=== PATIENT | male | born 1955 | race Caucasian/White ===

== ENCOUNTER 2016-03-31 13:40 | Emergency (ER) | payer OTHER ==
--- NOTE | 2016-03-31 14:12 | ERNOTE ---
Abdominal HPI - Narrative Date of Service: 03/31/16 - General Chief Complaint: Abdominal Pain Time Seen by Provider: 03/31/16 13:57 Source: patient, family Exam Limitations: no limitations - Immun/Allergies/Home Medications Allergies/Adverse Reactions: Allergies acetaminophen [From Percocet] Adverse Reaction (Verified 03/31/16 13:56) Nausea oxycodone HCl [From Percocet] Adverse Reaction (Verified 03/31/16 13:56) Nausea Home Medications: HOME MEDICATIONS Acetaminophen [Tylenol Extra Strength] 500 mg PO QID 01/28/12 [Last Taken ] Calcium Carbonate [Tums] 200 mg PO PRN PRN 01/28/12 [Last Taken 06/30/14] Diltiazem HCl [Cardizem Cd] 300 mg PO DAILY 01/28/12 [Last Taken 07/01/14] Lisinopril 20 mg PO DAILY 01/28/12 [Last Taken 07/01/14] Omeprazole 20 mg PO DAILY 01/28/12 [Last Taken 07/01/14] Sennosides [Perdiem] 3 tab PO DAILY 01/28/12 [Last Taken 06/30/14] Multivit-Min/FA/Lycopene/Lut [Centrum Silver Ultra Men's Tab] 1 each PO DAILY [Last Taken 06/30/14] Cholecalciferol (Vitamin D3) [Vitamin D3] 1,000 unit PO DAILY 06/18/14 [Last Taken 06/30/14] Propranolol HCl [Inderal LA] 120 mg PO QID 11/12/14 [Last Taken 11/29/14 07:00] Finasteride [Proscar] 5 mg PO DAILY 03/31/16 [Last Taken Unknown] Phentermine HCl [Adipex-P] 37.5 mg PO DAILY 03/31/16 [Last Taken Unknown] Tamsulosin HCl [Flomax] 0.4 mg PO DAILY 03/31/16 [Last Taken Unknown] Ubidecarenone [Co Q-10] 400 mg PO DAILY 03/31/16 [Last Taken Unknown] - History of Present Illness Narrative: Patient comes due to Abdominal Pain. The pain is more in the upper abdominal area. Patient has been with constipation and has noticed and increase on weight. Patient has noticed that his abdomen is getting distended. Patient tried to get seen by his PCP, but PCP send him to the ER to exclude and infection on his abdomen. Timing: constant Quality: moderate Activities at Onset: none Modifying Factors - (Improves): Present: other - nothing Modifying Factors - (Worsens): Present: movement Associated Symptoms: Present: nausea. Absent: headache, chest pain, diaphoresis , diarrhea-gross blood, diarrhea-mucous, fever/chills, heartburn, vomiting, loss of appetite, shortness of breath, swelling/mass in abdomen, syncope, weakness Prior Abdominal Problems: Present: similar symptoms. Absent: recent trauma Prior Treatment: Absent: recently seen Review of Systems - Review of Systems Constitutional: Absent: fever, chills, weakness EYE: Present: no symptoms reported ENT: Present: no symptoms reported Respiratory: Present: no symptoms reported Cardiology: Absent: chest pain, palpitations, syncope, edema Gastrointestinal/Abdominal: Present: nausea, constipation, abdominal pain - upper abdomen only Genitourinary: Present: no symptoms reported Musculoskeletal: Present: no symptoms reported Skin: Present: no symptoms reported Neurological: Present: no symptoms reported Endocrine: Present: no symptoms reported Hematologic/Lymphatic: Present: no symptoms reported Psych: Present: no symptoms reported - Patient's Past Medical History Patient History - Medical: GERD Patient History - Cancer: Skin Patient History - Surgical Procedures: Appendectomy, Colonoscopy, T & A - Social History Living Situations: spouse Smoking Status: Never smoker Have you smoked in the past 12 months: No Alcohol Use: none Drug Use: none Physical Exam - Physical Exam General Appearance: Present: wd/wn, alert, no apparent distress Eye Exam: Normal inspection: bilateral, PERRL: bilateral, EOMI: bilateral Ears, Nose, Throat: Present: normal ENT inspection, hearing grossly normal, normal pharynx Neck: Present: normal inspection, nontender Respiratory: Present: no respiratory distress, normal breath sounds, no accessory muscle use, chest nontender, lungs clear Cardiovascular/Chest: Present: regular rate, rhythm, no murmur, normal peripheral pulses Gastrointestinal/Abdominal: Present: tenderness - upper abdomen area, distended , guarding. Absent: rebound, Obturator sign, House sign, mass, hernia Back Exam: Present: no CVA tenderness Extremity Exam: Present: normal inspection, non-tender, no edema, normal range of motion Neurological Exam: Present: alert, oriented, normal mood/affect, no motor/ sensory deficits Skin Exam: Present: normal color, warm/dry Lymphatic Exam: Present: no adenopathy ED Progress - Date and Time Seen: Date and Time: 03/31/16 16:00 Patient at the moment with a non surgical abdomen. Patient CT was reported by radiologist with no acute pathology. Patient has been recommended to follow up with PCP an GI. I had informed patient of pulmonary changes and the importance to follow. It was informed by and patient that this findings were known to them and they will follow up with PCP. - Results and Orders Patient's Lab Results:: I have reviewed the patient's lab results. Results and Orders: Patient with no elevated WBC. Patient with evidence of chronic renal insufficiency. - Vital Signs Patient's Vital Signs:: I have reviewed the patient's vital signs. Vital Signs: Vital Signs 03/31/16 13:48 Temperature 36.0 C L Pulse Rate 57 L Respiratory 15 Rate Blood Pressure 135/78 O2 Sat by Pulse 95 Oximetry - CT/Ultrasound CT/Ultrasound Narrative: No Diverticulitis, Hiatal Hernia, Pulmonary Nodolue. Radiology report was noticed. - Progress/Reassessment Chief Complaint: Abdominal Pain Progress:: Re-examined Plan - Plan Plan: Follow up with your Primary Care Provider and/or GI Specialist Departure - Departure Clinical Impression: Abdominal pain Qualifiers: Abdominal location: generalized Qualified Code(s): R10.84 - Generalized abdominal pain Constipation Qualifiers: Constipation type: unspecified constipation type Qualified Code(s): K59.00 - Constipation, unspecified Disposition: Home self-care Instructions: Abdominal Pain, Adult, [id number] Referrals: Dominique Collins MD [Primary Care Provider] -
[2016-03-31 14:23] LABS: Urine Bilirubin Negative (NEGATIVE); Urine Blood Negative /ul (NEGATIVE); Urine Ketone Negative (NEGATIVE); Urine Nitrite Negative (NEGATIVE); Urine Protein Negative (NEGATIVE); Urine Specific Gravity 1.025 SP.GR. (1.005-1.030); Urine Urobilinogen Normal (NORMAL)
[2016-03-31 14:26] LABS: Hematocrit 44.3 % (42.0-52.0); Hemoglobin 14.8 gm/dL (13.5-18.0); Mean Cell Volume 88.1 fl (78-100); Mean Corpuscular Hemoglobin 29.4 pg (27-31); Mean Corpuscular Hgb Conc 33.4 g/dl (32-36); Neutrophil # 4.4 K/mm3 (1.3-6.0); Neutrophil % 64.7 % (42-75.0); Platelet Count 221 K/mm3 (150-450); Red Blood Count 5.03 M/mm3 (4.7-6.0); Red Cell Distribution Width 12.4 % (11.5-14.0); White Blood Count 6.8 K/mm3 (4.0-10.5)
[2016-03-31 14:35] LABS: Urine Appearance Clear; Urine Bacteria None Seen; Urine Color Dark Yellow; Urine RBC None Seen /hpf (0-5); Urine WBC None Seen /hpf (0-5)
[2016-03-31 14:39] LABS: Albumin * 4.1 gm/dl (3.4-5.0); Anion Gap 14.1 mmol/L (6.8-13.8); BUN/Creatinine Ratio 12.4 (9.0-21.6); Bilirubin, Total 0.8 mg/dL (0.0-1.1); Ca. Corrected For Albumin 8.8 mg/dL (8.4-10.2); Calcium * 9.2 mg/dL (7.9-10.9); Potassium 4.1 mmol/L (3.4-4.6); Total Protein 7.7 gm/dL (6.2-8.2)
[2016-03-31 15:17] VITALS: BP 139/87
== END 2016-03-31 16:07 | disposition home or self-care (01) ==
LOC: ER 13:40
DX: K59.00 Constipation, unspecified (principal); R10.84 Generalized abdominal pain; Z85.828 Personal history of other malignant neoplasm of skin; K21.9 Gastro-esophageal reflux disease without esophagitis

== ENCOUNTER 2019-01-29 06:19 | Inpatient (IN) ==
--- NOTE | 2019-01-24 07:31 | ANES ---
Anesthesia Pre Procedure Eval HOME MEDICATIONS Multivit-Min/FA/Lycopen/Lutein [Centrum Silver Ultra Men's Tab] 1 ea PO DAILY 04/27/12 [Last Taken 06/30/14] finasteride 5 mg tablet 5 mg PO DAILY #30 tab 09/15/17 [Last Taken Unknown] tamsulosin 0.4 mg capsule 0.4 mg PO DAILY #30 cap 09/16/17 [Last Taken Unknown] calcium carbonate 200 mg calcium (500 mg) chewable tablet 200 mg PO BID tab 02/13/18 [Last Taken Unknown] cholecalciferol (vitamin D3) 1,000 unit capsule 1,000 unit PO DAILY cap 02/13/18 [Last Taken Unknown] sennosides 15 mg tablet 15 mg PO TID tab 02/13/18 [Last Taken Unknown] fluticasone propionate 50 mcg/actuation nasal spray,suspension 2 spray FRANDY DAILY #16 g 05/19/18 [Last Taken Unknown] lisinopril 20 mg tablet See Rx Instructions .ROUTE .COMPLEX #30 tablet 11/16/18 [Last Taken Unknown] omeprazole 20 mg capsule,delayed release See Rx Instructions .ROUTE .COMPLEX #30 capsule 11/16/18 [Last Taken Unknown] propranolol 120 mg capsule,24 hr,extended release See Rx Instructions .ROUTE .COMPLEX #120 capsule 11/16/18 [Last Taken Unknown] cannabidiol (CBD) extract 100 mg/mL oral solution 500 mg PO .COMPLEX ml 01/04/19 [Last Taken Unknown] naproxen 500 mg tablet 500 mg PO BID PRN #60 tab 01/08/19 [Last Taken Unknown] tramadol 50 mg tablet See Rx Instructions PO Q8H PRN #60 tab 01/18/19 [Last Taken Unknown] diltiazem HCl 300 mg capsule,extended release 24 hr See Rx Instructions .ROUTE .COMPLEX #30 capsule 01/22/19 [Last Taken Unknown] levothyroxine 50 mcg tablet See Rx Instructions .ROUTE .COMPLEX #30 tablet 01/22/19 [Last Taken Unknown] Allergies/Adverse Reactions: Allergies Allergy/AdvReac Type Severity Reaction Status Date / Time oxycodone HCl [From Percocet] AdvReac Mild N/V Verified 01/23/19 09:36 - Planned Procedure Planned Procedure: L Arthroplasty Total Knee Medication List Reviewed:: Yes Allergies Verified: Yes Medical History (Last Reviewed 01/24/19 @ 07:29 by Sancho Leong CRNA) Abnormal chest CT Onset Date: 11/04/16 DJD (degenerative joint disease) of knee Onset Date: Unknown Finger pain Onset Date: Unknown left- ring right- long GERD (gastroesophageal reflux disease) Onset Date: Unknown Hyperlipidemia Onset Date: Unknown Hypertension Onset Date: Unknown Knee pain, left Onset Date: Unknown Personal history of colonic polyps Onset Date: 12/15/10 Bagan- benign hyperplastic polyp @ 100 cm. Seasonal allergies Onset Date: Unknown Shoulder pain Onset Date: 11/14/14 left- 04/20/2012 right- 11/14/2014 Skin lesion Onset Date: 10/31/13 right upper arm/melanoma Surgical History (Last Reviewed 01/24/19 @ 07:29 by Sancho Loeng CRNA) History of appendectomy Onset Date: Unknown age 6 History of arthroscopic knee surgery Onset Date: 07/01/14 left knee arthroscopy-dr. whitt History of arthroscopic surgery of shoulder Onset Date: 11/29/14 left- franklin--rtc repair- 04/28/12 right- - 11/29/14 History of carpal tunnel release Onset Date: Unknown bilateral History of colonoscopy Onset Date: 12/15/10 Bagan- benign hyperplastic polyp @ 100 cm. History of thumb surgery Onset Date: 2007 bilateral first joint removal History of tonsillectomy and adenoidectomy Onset Date: Unknown age 6 Status post trigger finger release Onset Date: 04/22/17 Dr. Whitt: right long finger A1 srinath Status post trigger finger release Onset Date: ~03/17/18 Procedure: Left ring finger A1 srinath release Dr. Whitt Family History (Last Reviewed 01/24/19 @ 07:29 by Sancho Leong CRNA) Mother Cancer thyroid Father , age 79 Cancer lung Kidney failure Sister Hyperlipemia - Family Anesthesia History Family History:: no untoward family reactions to anesthesia, no familial bleeding tendencies, no family history of clotting disorders, no family history of premature - Airway/Neck/Teeth Within Normal Limits:: Yes Teeth Condition: intact Neck Exam: full range of motion Mallampatti Score: 3 Thyromental (T-M) distance: > 6 cm Mandibulo Hyoid distance: > 3 cm - Respiratory Respiratory History: other - seasonal allergies Respiratory Physical: lungs clear Smoking Status: Never smoker Sleep Apnea currently treated: No Sleep Apnea by current assessment: No - Cardiovascular Cardiac History: hypertension Tolerate Activity: Fair - much pain on ambulation Heart Sounds: S1 & S2, Regular - Anesthesia Assessment and Plan ASA Class: PS, II Anesthesia Type Plan: Block - adductor canal block for post op pain relief, Spinal
[~2019-01-29 06:19] MED LIST: MORPHINE SULFATE 15 MG TABLET.SA PO PRN; ROPIVACAINE HCL/PF 100 MG, EPINEPHrine 0.2 MG, KETOROLAC TROMETHAMINE 30 MG in NORMAL S... IJ PRN; TRANEXAMIC ACID 1,000 MG in NORMAL SALINE 100 ML IV PRN; ceFAZolin SODIUM 1 GM VIAL IV PRN
[2019-01-29] MEDS ORDERED: ISOPROPYL ALCOHOL 480 APPL BTL MC ONE (06:42)
[2019-01-29] MEDS ORDERED: ceFAZolin SODIUM 1 GM VIAL ONE (06:43)
[2019-01-29] MEDS ORDERED: LIDOCAINE HCL 20 ML VIAL ONE (06:56)
[2019-01-29] MEDS ORDERED: MIDAZOLAM HCL/PF 5 MG/ML VIAL ONE (06:57)
[2019-01-29] MEDS ORDERED: BUPIVACAINE HCL/EPINEPHRINE 50 ML VIAL ONE (06:57)
[2019-01-29] MEDS ORDERED: PROPOFOL VIAL IV ONE (06:57)
[2019-01-29] MEDS ORDERED: ONDANSETRON HCL/PF 2 MG/ML VIAL ONE (07:16)
[2019-01-29] MEDS: RINGER'S SOLUTION,LACTATED 1,000 ML IV PRN ×2 (07:18→08:30)
[2019-01-29] MEDS ORDERED: MAGNESIUM HYDROXIDE 30 ML UDC PO PRN (10:25)
[2019-01-29] MEDS ORDERED: ZOLPIDEM TARTRATE 5 MG TABLET PO PRN (10:25)
[2019-01-29] MEDS ORDERED: MAG HYDROX/ALUMINUM HYD/SIMETH 30 ML UDC PO PRN (10:25)
[2019-01-29] MEDS ORDERED: diphenhydrAMINE HCL 50 MG/ML VIAL IV PRN (10:25)
[2019-01-29] MEDS ORDERED: ONDANSETRON HCL/PF 2 MG/ML VIAL IV PRN (10:25)
[2019-01-29] MEDS ORDERED: CALCIUM CARBONATE 500 MG TAB.CHEW PO PRN ×2 (10:27→11:00)
[2019-01-29] MEDS ORDERED: DILTIAZEM HCL SCH (10:30)
--- NOTE | 2019-01-29 10:31 | OR ---
Operative Report - Dictated Report Narrative: Date: 01/29/2019 Preoperative diagnosis: Left knee degenerative joint disease. Postoperative diagnosis: Left knee degenerative joint disease. Procedure: Left total knee arthroplasty. Surgeon: Abiodun Whitt M.D. Newspaper Illustrator: Carl Licona PA-C (provided and essential set of skilled, educated hands that assisted with transfer, positioning, prepping, draping, manipulation, retraction, placement of jigs, injection, insertion of implants, irrigation, closure wounds, and dressings all of which could not be performed by the available surgical crew) Anesthesia: Spinal with regional block and local periarticular joint injection. Complications: None Specimens: Bone. Estimated blood loss: Minimal. Tourniquet time: 100 Minutes at 325 millimeters of mercury. Retained implants: Depuy Attune size 7 left lugged cemented posterior stabilized femoral component. Size 7 fixed-bearing cemented tibial platform. 7 by 5 millimeter posterior stabilized cross-linked tibial insert. 41 millimeter medialized patella button. Indications: Mr. Unger is a 63-year-old gentleman who has had long-standing left knee pain and arthrosis. This patient was followed in my clinic for period of time with significant complaints of left knee pain consistent with arthritic changes. He had failed conservative measures including, but not limited to, activity modification, passage of time, medications, and other conservative measures. Patient wished to proceed with surgical treatment. The risks, benefits, and alternatives were discussed in clinic. The risks of , blood clots, bleeding, infection, nerve/tendon blood vessel/ injury, malposition of components, intraoperative fracture, postoperative limited range of motion, persistent pain, failure of components, and need for additional procedures. Patient wished to proceed consent was obtained after answering all questions. Procedure: After marking the correct extremity on the floor, the patient was taken to the operating room. A timeout was performed. IV antibiotics consisting of Ancef were administered prior to the procedure. A regional followed by spinal anesthetic was induced by anesthesia, per my request, on the operative table with all bony prominences well-padded. Bender catheter was placed, and a bump was placed under the operative side buttock. SCDs and OZZY hose were utilized on the nonoperative leg. A well-padded tourniquet was applied to the operative thigh. The operative leg was then pre-scrubbed with alcohol, prepped, and draped in a standard sterile fashion. After exsanguinating the extremity with an Esmarch bandage, the tourniquet was inflated. After marking out the anterior knee for standard incision centered over the patella, the skin was incised and dissected down to the joint retinaculum. The joint retinaculum was marked out as well as the horizontal axis of the patella, and a standard medial parapatellar arthrotomy was then made. The most proximal aspect of the quadriceps tendon and the patella tendon insertion were protected from release. A partial synovectomy was performed as well as a resection of the infrapatellar fat pad. The distal femoral fat pad proximal to the trochlea was also resected using cautery. The soft tissues were elevated off the medial aspect of the proximal tibia using a Alejo elevator ensuring that we did not transect the medial collateral ligament. Upon initial evaluation range of motion was approximately 0 degrees to 115 degrees of flexion. There were signs of advanced arthrosis in the medial, and patellofemoral greater than lateral joint spaces. There were large marginal osteophytes which were removed with a rongeur. The knee was hyperflexed and the patella was tucked laterally. Protecting the surrounding soft tissues with Homans, an entry drill was placed down the femoral canal using Whitesides line for guidance into the entry point. The intramedullary femoral alignment luis was utilized in order to cut the distal femur in 5 degrees of valgus resecting 10 millimeters of bone. Next the distal femur was sized to a size 7. A posterior referencing guide was utilized to place the distal femoral cutting block in 3 degrees of external rotation. This was pinned into place. The rotation was confirmed both visually and based on anatomic landmarks. The 4 in 1 cutting jig of the appropriate size was utilized in order to make all bony cuts. The angle wing was used to ensure no notching. Retractors were utilized in order to protect surrounding soft tissues. This cut did not result in any excessive notching. We then cut the box centered over the distal femur. This allowed for resection of the anterior and posterior cruciate ligaments. I then turned my attention to the preparation of the tibia. Using an extra medullary tibial alignment luis, 3 millimeters of bone was resected off the medial articular surface. This was made perpendicular to the mechanical axis of the joint with the alignment luis centered over the ankle mortise. The alignment luis was checked and was noted to be parallel to the mechanical axis, centered over the medial one third of the tibial tubercle, paralleling the anterior surface of the tibia. We then turned our attention to the remaining meniscus and soft tissues. These were removed while protecting the surrounding ligaments and soft tissues. The marginal osteophytes off the anterior, posterior, medial, lateral aspects of the femur and tibia were removed. The tibia was sized out to a size 7. Next the tibia was drilled and punched in an externally rotated position. Next the trial femur and a series of tibial inserts were utilized in order to allow for full extension and maximal flexion. It was found that a 5 millimeter insert gave the best range of motion and stability at multiple flexion points as well as at full extension there was less than 2 mm of gapping both medially and laterally. There is minimal anterior translation with the knee at 90 degrees of flexion and no signs of being able to dislocate the knee. The patella was then prepared. The initial thickness was 25 millimeters. This was reamed down to 15 millimeters parallel to the anterior surface of the patella. It was sized out to a size 41 medialized patella button. This was then drilled and trialed. Without any medial restraint the patella tracked appropriately and did not sublux or dislocate. At this point, it was felt these were the appropriate sized implants, and all trials were removed. The standard periarticular joint injection consisting of ropivacaine, Toradol, and epinephrine were injected into the periarticular joint tissues. The bony surfaces were thoroughly irrigated with a pulsatile-suction saline irrigation device. A bone plug from the prior resected anterior chamfer cut was placed into the drill hole at the distal femur. The bony surfaces were then dried in preparation for placement of the implants. The cement was vacuum mixed per the railcar carpenter's instructions. The cement was placed on the dry bony surfaces and posterior aspect of the implants. The implants were impacted into place, removing all extruded cement. At this point anesthesia administered tranexamic acid per protocol intravenously. The knee was placed in extension with axial loading with the trial insert while the cement cured. Once the cement cured, all remaining extruded cement was removed. The knee was placed through a range of motion with the trial insert to ensure appropriate range of motion and stability. Final range of motion was approximately 0 to 120 degrees. The knee was again thoroughly irrigated with pulsatile saline lavage. The final polyethylene insert was then impacted into place ensuring no retained soft tissues. The remaining periarticular joint injection was injected. A medium Hemovac drain was placed exiting superior laterally. The knee was then placed over a triangle and the arthrotomy was closed with interrupted #1 Vicryl after thoroughly irrigating the joint. The deep and subcutaneous tissues were closed with interrupted 0 and 3-0 Vicryl respectively. Skin was closed with a running subcutaneous 3-0 Monocryl and Prineo Dermabond dressing. 4 x 4's, Sof-Rol, and a full leg Jung wrap were applied. All sponge, needle, blade, and instrument counts were correct prior to closing the wounds. Postoperative condition: The patient was awoken and transferred to the postanesthesia care unit in stable condition. Plan is to be admitted to the inpatient medical/surgical floor postoperatively for 24 hours of IV antibiotics, physical therapy, occupational therapy, and medical comanagement. Patient will be weightbearing as tolerated with range of motion as tolerated. DVT prophylaxis will be with SCDs, OZZY hose, and pharmacological anticoagulation. Anticipated hospital stay is approximately 1-3 days.
--- NOTE | 2019-01-29 10:32 | ANES ---
Post Anesthesia Discharge - Transfer of Care Transfer of Care handoff given to nurse: Yes - Discharge from PACU Discharge from PACU when meets criteria: Yes - Awake and comfortable
--- NOTE | 2019-01-29 10:32 | ANES ---
Anesthesia Procedure Note Procedure Note: ANESTHESIA PROCEDURE NOTE Date of Procedure: [01/29/2019 Time of procedure: 8:00 a.m. Performed by: DRE Marcum CRNA, MSN Supervisor Sintering Plant: Elisabeth Kasper RN. Preprocedure diagnosis: Elisabeth Kasper RN. Post procedure diagnosis: Same. Procedure: Left adductor Canal Block. Indications: Post left total knee arthroplasty pain relief. Findings: See below. Details of the procedure: The patient was brought to OR for and placed in supine position. The patient's left femoral area to the knee was prepped with chlorhexidine and using ultrasound guidance the left femoral artery and nerve was identified and then followed to the level of the adductor canal. Lidocaine 1% was infiltrated to the skin of the intended injection site. Under ultrasound guidance the saphenous nerve was approached with visualization of a 2 inch shielded block needle. Once saphenous nerve was identified with proximity to the needle tip, the saphenous nerve was surrounded with 20 mL bupivacaine 0.5% with 1-200,000 epinephrine. Please see radiology/ultrasound report for details and retained images of the procedure. EBL: 0 Fluids: N/A. Specimen: N/A. Post procedure condition: The patient tolerated the procedure well. No complications were noted. Thank you for this consultation. Sancho Leong CRNA, ARNP, MSN
[2019-01-29] MEDS: ceFAZolin SODIUM 1 GM in DEXTROSE 5 % IN WATER 100 ML IV SCH ×4 (11:39→17:31)
[2019-01-29] MEDS: DEXTROSE 5%-LACTATED RINGERS 1,000 ML IV PRN ×2 (11:39→20:44)
[2019-01-29] MEDS: KETOROLAC TROMETHAMINE 15 MG/ML VIAL IV SCH ×3 (11:40→22:12)
--- NOTE | 2019-01-29 11:54 | ANES ---
Post Anesthesia Assessment - Vital Signs Vitals: Last Vital Signs Temp 36.8 C 01/29/19 10:54 Pulse 56 L 01/29/19 10:54 Resp 14 01/29/19 10:54 BP 138/83 01/29/19 10:54 Pulse Ox 98 01/29/19 10:54 Airway Patency: Normal - Mental Status Level Of Consciousness: Awake, Alert, Appropriate - Pain Level Pain Score: 0 - N/V Assessment Nausea/Vomiting Presence: None Dehydration:: No
[2019-01-29] MEDS: MORPHINE SULFATE 10 MG/0.5 ML SYRINGE PO PRN ×2 (12:42→16:51)
[2019-01-29] MEDS: PANTOPRAZOLE SODIUM 20 MG TABLET.DR PO SCH (13:33)
[2019-01-29] MEDS: MORPHINE SULFATE 2 MG/ML DISP.SYRIN IV PRN (13:33)
[2019-01-29] MEDS: DILTIAZEM HCL PO SCH ×2 (13:33)
[2019-01-29] MEDS: PROPRANOLOL HCL 60 MG CAPSULE.SA PO SCH (13:33)
[2019-01-29] MEDS: FINASTERIDE 5 MG TABLET PO SCH (18:39)
[2019-01-29] MEDS: TAMSULOSIN HCL 0.4 MG CAP.SR.24H PO SCH (18:39)
[2019-01-29] MEDS: MORPHINE SULFATE 15 MG TABLET.SA PO SCH (20:44)
[2019-01-29] MEDS: SENNOSIDES 8.6 MG TABLET PO SCH (20:46)
[2019-01-29] MEDS: SENNOSIDES/DOCUSATE SODIUM 1 TAB TABLET PO SCH (20:47)
[2019-01-29] MEDS ORDERED: TAMSULOSIN HCL 0.4 MG CAP.SR.24H PO SCH (21:00)
[2019-01-30] MEDS: ceFAZolin SODIUM 1 GM in DEXTROSE 5 % IN WATER 100 ML IV SCH ×2 (00:20)
[2019-01-30] MEDS ORDERED: PROCHLORPERAZINE EDISYLATE 5 MG/ML VIAL IV PRN (02:14)
[2019-01-30] MEDS ORDERED: SCOPOLAMINE HYDROBROMIDE 1.5 MG PATC TD ONE (02:30)
[2019-01-30] MEDS: KETOROLAC TROMETHAMINE 15 MG/ML VIAL IV SCH (04:23)
[2019-01-30] MEDS: DEXTROSE 5%-LACTATED RINGERS 1,000 ML IV PRN (05:26)
[2019-01-30 06:28] LABS: Hematocrit 39.1 % (42.0-52.0); Mean Cell Volume 92.2 fl (78-100); Mean Corpuscular Hemoglobin 30.7 pg (27-31); Mean Corpuscular Hgb Conc 33.2 g/dl (32-36); Mean Platelet Volume 10.8 fl (8-11.3); Platelet Count 176 K/mm3 (150-450); Red Blood Count 4.24 M/mm3 (4.7-6.0); Red Cell Distribution Width 12.8 % (11.5-14.0); White Blood Count 8.3 K/mm3 (4.0-10.5)
[2019-01-30 06:33] LABS: BUN/Creatinine Ratio 8.8 (9.0-21.6); Calcium * 8.3 mg/dL (7.9-10.9); Carbon Dioxide 27.9 mmol/L (24-32.6); Estimated Creat Clear 59.8; Potassium 3.9 mmol/L (3.4-4.6)
[2019-01-30] MEDS: MORPHINE SULFATE 10 MG/0.5 ML SYRINGE PO PRN ×4 (07:49→16:14)
[2019-01-30] MEDS: LEVOTHYROXINE SODIUM 50 MCG TABLET PO SCH (07:52)
[2019-01-30] MEDS ORDERED: FINASTERIDE 5 MG TABLET PO SCH (09:00)
[2019-01-30] MEDS ORDERED: OXYMETAZOLINE HCL 150 SPRAY BTL NS SCH (09:00)
[2019-01-30] MEDS ORDERED: FLUTICASONE PROPIONATE 120 SPRAY INHALER NS SCH ×2 (09:00→21:00)
[2019-01-30] MEDS: MULTIVIT-MIN/FA/LYCOPEN/LUTEIN 1 TAB TABLET PO SCH (09:46)
[2019-01-30] MEDS: PANTOPRAZOLE SODIUM 20 MG TABLET.DR PO SCH (09:46)
[2019-01-30] MEDS: CHOLECALCIFEROL 1,000 UNIT CAPSULE PO SCH (09:46)
[2019-01-30] MEDS: PROPRANOLOL HCL 60 MG CAPSULE.SA PO SCH ×4 (09:46→20:07)
[2019-01-30] MEDS: DILTIAZEM HCL PO SCH ×2 (09:46)
[2019-01-30] MEDS: LISINOPRIL 20 MG TABLET PO SCH (09:47)
[2019-01-30] MEDS: MORPHINE SULFATE 15 MG TABLET.SA PO SCH ×2 (09:51→20:07)
[2019-01-30] MEDS ORDERED: OXYMETAZOLINE HCL 150 SPRAY BTL NS PRN (09:55)
[2019-01-30] MEDS: ENOXAPARIN SODIUM 40 MG/0.4 ML SYRG SC SCH (09:55)
[2019-01-30] MEDS ORDERED: MAGNESIUM CITRATE 300 ML BTL PO ONE (11:48)
[2019-01-30] MEDS: ACETAMINOPHEN 500 MG TABLET PO PRN (14:18)
[2019-01-30] MEDS: MORPHINE SULFATE 2 MG/ML DISP.SYRIN IV PRN (14:31)
--- NOTE | 2019-01-30 15:39 | PN ---
Subjective - Date and Time Seen Date: 01/30/19 Time: 08:00 Subjective Narrative: 0800 Patient reports he did have a rough night with nausea. He reports his nausea is improved this morning with his changes to his medications and the scopolamine patch and antinausea medicine. He reports at this time his pain is controlled. He was able to get up to the chair with physical therapy but had not walked in the halls at this point time. No chest pain shortness of breath or lightheadedness. I did recheck patient over the lunch hour and he was having some increasing pain of his knee. He did require the use of IV pain medication. Objective Objective Narrative: Bandages clean dry and intact, patient was neurovascular intact with plantar flexion dorsiflexion of the ankle calf is supple. Drain intact. Labs reviewed. - Vitals Vitals: Last Vital Signs Temp 36.8 C 01/30/19 13:31 Pulse 71 01/30/19 13:31 Resp 16 01/30/19 13:31 BP 166/90 H 01/30/19 13:31 Pulse Ox 95 01/30/19 13:31 - Abnormal Lab Findings Abnormal Lab Findings: Abnormal Lab Results 01/30/19 01/30/19 Range/Units 06:15 06:15 RBC 4.24 L (4.7-6.0) M/mm3 Hgb 13.0 L (13.5-18.0) gm/dL Hct 39.1 L (42.0-52.0) % Anion Gap 6.0 L (6.8-13.8) mmol/L Creatinine 1.47 H (0.4-1.4) mg/dL Est GFR (Non-Af Amer) 51 L (60-130) mL/min BUN/Creatinine Ratio 8.8 L (9.0-21.6) Random Glucose 145 H (70-110) mg/dL Cauti Physician Documentation - Urinary Catheter Management Urethral (Bender) Date of Insertion: 01/29/19 Time of Insertion: 08:25 Date of Removal: 01/30/19 Time of Removal: 05:43 Assessment/Plan - Problems/Diagnosis (1) Status post left knee replacement Problem: Acute Narrative: At this time Mikey pain is not controlled on oral medication. Will make modifications to his medications. He was unable to progress with physical therapy and has not done his stairs as he has 5 steps to get in and out of his house. Due to his pain control issues and his failure to progress with therapy will need to remain in the hospital. Continue with anticoagulation. (2) Acute blood loss anemia Problem: Acute Narrative: Patient went from 15 g to 13 g. We will continue observation of this as patient is not symptomatic regarding the anemia.
[2019-01-30] MEDS: TAMSULOSIN HCL 0.4 MG CAP.SR.24H PO SCH (18:08)
[2019-01-30] MEDS: FINASTERIDE 5 MG TABLET PO SCH (18:08)
[2019-01-30] MEDS: SENNOSIDES/DOCUSATE SODIUM 1 TAB TABLET PO SCH (20:08)
[2019-01-30] MEDS: SENNOSIDES 8.6 MG TABLET PO SCH (20:08)
[2019-01-31] MEDS ORDERED: PANTOPRAZOLE SODIUM 20 MG TABLET.DR PO SCH (07:00)
[2019-01-31] MEDS: MORPHINE SULFATE 10 MG/0.5 ML SYRINGE PO PRN ×2 (07:03→12:34)
[2019-01-31] MEDS: LEVOTHYROXINE SODIUM 50 MCG TABLET PO SCH (07:04)
[2019-01-31] MEDS: ENOXAPARIN SODIUM 40 MG/0.4 ML SYRG SC SCH (09:25)
[2019-01-31] MEDS: LISINOPRIL 20 MG TABLET PO SCH (09:26)
[2019-01-31] MEDS: CHOLECALCIFEROL 1,000 UNIT CAPSULE PO SCH (09:26)
[2019-01-31] MEDS: DILTIAZEM HCL PO SCH ×2 (09:27)
[2019-01-31] MEDS: MULTIVIT-MIN/FA/LYCOPEN/LUTEIN 1 TAB TABLET PO SCH (09:29)
[2019-01-31] MEDS: PROPRANOLOL HCL 60 MG CAPSULE.SA PO SCH ×2 (09:30→12:40)
[2019-01-31] MEDS: MORPHINE SULFATE 15 MG TABLET.SA PO SCH (09:31)
--- NOTE | 2019-01-31 12:49 | DS ---
(1) Status post left knee replacement Problem: Acute (2) Acute blood loss anemia Problem: Acute (3) Stage III chronic kidney disease Problem: Chronic (4) Hypertension Problem: Chronic (5) Hyperlipidemia Problem: Chronic Date of Discharge:: 01/31/19 Description of Stay: Mr. Unger was admitted to the floor after undergoing left total knee arthroplasty. Tolerated this well. Was admitted to the floor postoperatively for 24 hours of IV antibiotics, pain control, medical comanagement, and occupational and physical therapy. OT and PT were consulted to assist with activities of daily living and ambulation. Was made weightbearing as tolerated with range of motion as tolerated. Pain was initially controlled with IV regime n. Patient did have problems with nausea and vomiting on postoperative night 1. Scopolamine and antiemetic medications were instituted. This did improve. This was transitioned to oral once tolerating a by mouth intake and finding medications that were not causing nausea and vomiting for the patient. Was resumed on home diet and medications. Had a Bender catheter inserted and the operating room which was discontinued on postoperative day 1. A drain was placed intraoperatively into the knee which was discontinued on postoperative day 1. Lovenox SCD and OZZY hose were utilized for DVT prophylaxis. Vital signs remained stable to the hospital course. Serial labs were obtained which showed a final hemoglobin of 13.0 grams down from 15.0 g preoperatively. BMP did show elevated creatinine and his Toradol was discontinued. Physical examination throughout the hospital course showed an extremity that had sensation that was intact to light touch, palpable pulses, a benign wound, motor intact to the toes, ankle, and knee. Knee range of motion was approximately 5 degrees to 70 degrees. Once an oral pain regimen was tolerated and physical therapy goals were met, it was felt that they were stable for discharge to home. Instructions: Continue with weightbearing as tolerated and range of motion as tolerated. It is OK to shower on the wound if it is not draining. If you note any drainage or for comfort you can cover with dry gauze and tape. Change every 2-3 days as needed. Continue with physical therapy. Resume home diet. Report any fever over 101.5 Fahrenheit, uncontrolled pain, increased drainage, foul odor of drainage, new or increased calf pain or shortness of breath, or any other significant complaints. A 325mg dialy aspirin will be started after finishing anticoagulation if not allergic. Continue with OZZY hose on the operative extremity until instructed otherwise. No driving until instructed otherwise. Follow up in approximately 10-14 days. Patient is discharged with a referral to home health. Mr. Unger's need for home health is due to the fact that he is confined to his home as he is unable to drive his car. He will need nursing home care for assistance with activities of daily living, evaluation of wound and dressing changes if needed, he will need physical therapy for progressive strengthening and range of motion. The need for home health care skilled services is directly related to time spent with [id number] encounter with Mr. Unger. Procedures Performed: see notes below List Procedures: Left total knee arthroplasty Results and Findings: Lab Pending Results 01/30/19 06:15: WBC 8.3, RBC 4.24 L, Hgb 13.0 L, Hct 39.1 L, MCV 92.2, MCH 30.7, MCHC 33.2, RDW 12.8, Plt Count 176, MPV 10.8 01/30/19 06:15: Sodium 133, Plasma Sodium 134, Potassium 3.9, Chloride 103, Carbon Dioxide 27.9, Anion Gap 6.0 L, BUN 13, Creatinine 1.47 H, Est GFR (Non-Af Amer) 51 L, BUN/Creatinine Ratio 8.8 L, Random Glucose 145 H, Calcium 8.3 Discharge Location: Home Disposition: Home Health Service Home Health Agency: [facility] Home Health Condition: Good Discharge Activity: Activity as tolerated, Weight bearing, Other - With wheeled walker Discharge Diet: Low salt, Low fat/chol Referrals: Abiodun Whitt MD [Staff Physician] - 02/20/19 9:30 am Problem Oriented Discharge Instructions to Patient/Family: Total Knee Replacement, Care After, [id number] Additional Patient Instructions (free text): [facility] home health at discharge, please call and fax discharge information to them. Follow up Orthopedic office appointment schedule with Dr. Whitt on TuesdayFebruary 20 at 9:30am. Prescriptions (Any new or edited meds): Enoxaparin Sodium [Lovenox] 40 mg SC Q24H #7 disp.syrin Transmission Status: Pending to [facility], [place] Morphine Sulfate 15 mg PO Q3H PRN #56 tab PRN Reason: Pain Transmission Status: Sent to [place], [place] Morphine Sulfate [Ms Contin] 15 mg PO Q12H #14 tablet.sa Transmission Status: Sent to [place], [place] Sennosides/Docusate Sodium [Senokot-S] 2 tab PO HS #30 tab Transmission Status: Pending to [place], [place] Complete Home Medications List: Complete Home Medication List: Multivit-Min/FA/Lycopen/Lutein [Centrum Silver Ultra Men's Tab] 1 ea PO DAILY 04/27/12 finasteride 5 mg tablet 5 mg PO DAILY #30 tab 09/15/17 calcium carbonate 200 mg calcium (500 mg) chewable tablet 200 mg PO BID PRN tab 02/13/18 cholecalciferol (vitamin D3) 1,000 unit capsule 1,000 unit PO DAILY cap 02/13/18 sennosides 15 mg tablet 45 mg PO HS tab 02/13/18 fluticasone propionate 50 mcg/actuation nasal spray,suspension 2 spray FRANDY DAILY #16 g MDD hs 05/19/18 cannabidiol (CBD) extract 100 mg/mL oral solution 500 mg PO .COMPLEX ml 01/04/19 naproxen 500 mg tablet 500 mg PO BID PRN #60 tab 01/08/19 Fexofenadine/Pseudoephedrine [Korina-D 24 Hour Tablet] 1 ea PO DAILY 01/24/19 Diltiazem HCl [Diltiazem 24Hr ER] 300 mg PO DAILY 01/29/19 Levothyroxine Sodium [Synthroid] 50 mcg PO DAILY 01/29/19 Lisinopril 20 mg PO DAILY 01/29/19 Omeprazole 20 mg PO DAILY 01/29/19 Oxymetazoline HCl [Afrin Nasal [place]] 1 spray NS DAILY 01/29/19 Propranolol HCl [Inderal Xl] 120 mg PO DAILY 01/29/19 Tamsulosin HCl [Flomax] 0.4 mg PO HS 01/29/19 Enoxaparin Sodium [Lovenox] 40 mg SC Q24H #7 disp.syrin 01/31/19 Morphine Sulfate 15 mg PO Q3H PRN #56 tab 01/31/19 Morphine Sulfate [Ms Contin] 15 mg PO Q12H #14 tablet.sa 01/31/19 Sennosides/Docusate Sodium [Senokot-S] 2 tab PO HS #30 tab 01/31/19
[2019-01-31 14:40] VITALS: BP 140/72
[2019-01-31] MEDS: ACETAMINOPHEN 500 MG TABLET PO PRN (14:48)
== END 2019-01-31 15:05 | disposition home health service (06) | DRG 470 ==
LOC: MS 06:19 → EDSTATUS 08:00
PROVIDERS: ADMIT Orthopaedic Surgery; ATTEND Orthopaedic Surgery
CPT/HCPCS: 36415; 73560; 80048; 85027; 97110; 97116; 97161; 97165; 97530; 97535; J2405

== ENCOUNTER 2020-06-30 08:44 | Inpatient (IN) ==
--- NOTE | 2020-06-25 08:41 | ANES ---
Anesthesia Pre Procedure Eval HOME MEDICATIONS Multivit-Min/FA/Lycopen/Lutein [Centrum Silver Ultra Men's Tab] 1 ea PO DAILY 04/27/12 [Last Taken 01/28/19] calcium carbonate 200 mg calcium (500 mg) chewable tablet 200 mg PO BID PRN tab 02/13/18 [Last Taken Unknown] cholecalciferol (vitamin D3) 25 mcg (1,000 unit) capsule 1,000 unit PO DAILY c ap 02/13/18 [Last Taken 01/28/19] sennosides 15 mg tablet 45 mg PO HS tab 02/13/18 [Last Taken 01/28/19] fluticasone propionate 50 mcg/actuation nasal spray,suspension 2 spray FRANDY DAILY #16 g MDD hs 05/19/18 [Last Taken 01/28/19] naproxen 500 mg tablet 500 mg PO BID PRN #60 tab 01/08/19 [Last Taken 01/21/19] Fexofenadine/Pseudoephedrine [Korina-D 24 Hour Tablet] 1 ea PO DAILY 01/24/19 [Last Taken 01/28/19] Oxymetazoline HCl [Afrin Nasal [place]] 1 spray NS DAILY 01/29/19 [Last Taken 01/29/19] diltiazem HCl 300 mg capsule,24 hr,extended release 300 mg PO DAILY #30 cap 04/08/20 [Last Taken Unknown] levothyroxine 50 mcg tablet 50 mcg PO DAILY #30 tab 04/08/20 [Last Taken Unknown] lisinopril 20 mg tablet 20 mg PO DAILY #30 tab 04/08/20 [Last Taken Unknown] omeprazole 20 mg tablet,delayed release 20 mg PO DAILY #30 tab 04/08/20 [Last Taken Unknown] finasteride 5 mg tablet 5 mg PO DAILY #30 tab 06/09/20 [Last Taken Unknown] tamsulosin 0.4 mg capsule 0.4 mg PO HS #30 cap 06/09/20 [Last Taken Unknown] propranolol 120 mg capsule,24 hr,extended release 480 mg PO DAILY #120 cap 06/12/20 [Last Taken Unknown] Allergies/Adverse Reactions: Allergies Allergy/AdvReac Type Severity Reaction Status Date / Time oxycodone HCl [From Percocet] AdvReac Mild N/V Verified 06/16/20 09:08 - Planned Procedure Planned Procedure: Right Arthroplasty Total Knee Medical History (Last Reviewed 06/16/20 @ 09:08 by Francisca Patel CMA) COVID-19 vaccine series completed (Acute) Abnormal chest CT Onset Date: 11/04/16 Benign essential tremor DJD (degenerative joint disease) of knee Onset Date: Unknown Enlarged prostate Finger pain Onset Date: Unknown left- ring right- long GERD (gastroesophageal reflux disease) Onset Date: Unknown Hyperlipidemia Onset Date: Unknown p/t reports resolved Hypertension Onset Date: Unknown Knee pain, left Onset Date: Unknown Personal history of colonic polyps Onset Date: 12/15/10 Bagan- benign hyperplastic polyp @ 100 cm. Seasonal allergies Onset Date: Unknown Shoulder pain Onset Date: 11/14/14 left- 04/20/2012 right- 11/14/2014 Wears contact lenses Surgical History (Last Reviewed 06/16/20 @ 09:09 by Francisca Patel CMA) History of appendectomy Onset Date: Unknown age 6 History of arthroscopic knee surgery Onset Date: 07/01/14 left knee arthroscopy-dr. whitt History of arthroscopic surgery of shoulder Onset Date: 11/29/14 left- [place]lin--rtc repair- 04/28/12 right- - 11/29/14 History of carpal tunnel release Onset Date: Unknown bilateral History of colonoscopy Onset Date: 12/15/10 Bagan- benign hyperplastic polyp @ 100 cm. History of thumb surgery Onset Date: 2007 bilateral first joint removal History of tonsillectomy and adenoidectomy Onset Date: Unknown age 6 S/P total knee arthroplasty Onset Date: ~01/29/19 Left total knee arthroplasty: Dr. Whitt Skin lesion Onset Date: 10/31/13 right upper arm/melanoma Status post trigger finger release Onset Date: 04/22/17 Dr. Whitt: right long finger A1 srinath Status post trigger finger release Onset Date: ~03/17/18 Procedure: Left ring finger A1 srinath release Dr. Whitt Family History (Last Reviewed 06/16/20 @ 09:09 by Francisca Patel CMA) Mother Heart valve problem Kidney failure Cancer thyroid Father , age 79 Kidney failure Cancer lung Sister Hyperlipemia Circulatory disorder in bilateral lower legs - Respiratory Smoking Status: Never smoker Discussed smoking cessation including day of surgery: No Sleep Apnea currently treated: No Sleep Apnea by current assessment: No Discussed Risks/Treatment of AYSE: No - Cardiovascular Tolerate Activity: Fair Heart Sounds: S1 & S2, Regular - Anesthesia Assessment and Plan ASA Class: PS, III Anesthesia Type Plan: Block - Right ultrasound guided adductor canal nerve block for postop analgesia, Spinal
[~2020-06-30 08:44] MED LIST changes: -ROPIVACAINE HCL/PF 100 MG, EPINEPHrine 0.2 MG, KETOROLAC TROMETHAMINE 30 MG in NORMAL S... IJ PRN; +ROPIVACAINE/CLONIDIN/KETOROLAC 50 ML SYRINGE IJ PRN
[2020-06-30] MEDS ORDERED: ROPIVACAINE/CLONIDIN/KETOROLAC 50 ML SYRINGE IJ ONE (08:51)
[2020-06-30] MEDS ORDERED: ceFAZolin SODIUM 1 GM VIAL ONE (08:51)
[2020-06-30] MEDS ORDERED: PROPOFOL VIAL IV ONE (09:35)
[2020-06-30] MEDS ORDERED: ONDANSETRON HCL/PF 2 MG/ML VIAL ONE (09:35)
[2020-06-30] MEDS ORDERED: LIDOCAINE HCL 20 ML VIAL ONE (09:35)
[2020-06-30] MEDS ORDERED: fentaNYL CITRATE/PF 50 MCG/ML AMPUL ONE (09:35)
[2020-06-30] MEDS ORDERED: BUPIVACAINE HCL/EPINEPHRINE 50 ML VIAL ONE (09:36)
[2020-06-30] MEDS ORDERED: ONDANSETRON HCL/PF 2 MG/ML VIAL IV PRN ×2 (09:40→11:55)
[2020-06-30] MEDS ORDERED: diphenhydrAMINE HCL 50 MG/ML VIAL IV PRN ×2 (09:40→11:55)
[2020-06-30] MEDS ORDERED: HYDROmorphone HCL 2 MG/ML VIAL IV PRN (09:40)
[2020-06-30] MEDS ORDERED: PROCHLORPERAZINE EDISYLATE 5 MG/ML VIAL IV PRN (09:40)
[2020-06-30] MEDS ORDERED: NALOXONE HCL 0.4 MG/ML VIAL IV PRN (09:40)
[2020-06-30] MEDS: RINGER'S SOLUTION,LACTATED 1,000 ML IV PRN ×2 (09:44→11:15)
[2020-06-30] MEDS ORDERED: MAGNESIUM CITRATE 300 ML BTL PO PRN (11:55)
[2020-06-30] MEDS ORDERED: ACETAMINOPHEN 500 MG TABLET PO PRN (11:55)
[2020-06-30] MEDS ORDERED: ZOLPIDEM TARTRATE 5 MG TABLET PO PRN (11:55)
[2020-06-30] MEDS ORDERED: MAG HYDROX/ALUMINUM HYD/SIMETH 30 ML UDC PO PRN (11:55)
[2020-06-30] MEDS ORDERED: MAGNESIUM HYDROXIDE 30 ML UDC PO PRN (11:55)
[2020-06-30] MEDS ORDERED: DEXTROSE 5%-LACTATED RINGERS 1,000 ML IV PRN (11:55)
[2020-06-30] MEDS ORDERED: MORPHINE SULFATE 2 MG/ML DISP.SYRIN IV PRN (11:55)
--- NOTE | 2020-06-30 11:55 | OR ---
Operative Report - Dictated Report Narrative: Date: 06/30/2020 Preoperative diagnosis: Right knee degenerative joint disease. Postoperative diagnosis: Right knee degenerative joint disease. Procedure: Right total knee arthroplasty. Surgeon: Abiodun Whitt M.D. Truck Cleaner: Carl Licona PA-C (provided and essential set of skilled, educated hands that assisted with transfer, positioning, prepping, draping, manipulation, retraction, placement of jigs, injection, insertion of implants, irrigation, closure wounds, and dressings all of which could not be performed by the available surgical crew) Anesthesia: Spinal with regional block and local periarticular joint injection. Complications: None Specimens: Bone. Estimated blood loss: Minimal. Tourniquet time: 95 minutes at 325 millimeters of mercury. Retained implants: Depuy Attune size 7 right lugged cemented posterior stabilized femoral component. Size 7 fixed-bearing cemented tibial platform. 7 by 5 millimeter posterior stabilized cross-linked tibial insert. 41 millimeter medialized patella button. Indications: Mr. Unger is a 64-year-old gentleman who has had longstanding right knee pain and arthrosis. This patient was followed in my clinic for period of time with significant complaints of right knee pain consistent with arthritic changes. He had failed conservative measures including, but not limited to, activity modification, passage of time, medications, and other conservative measures. Patient wished to proceed with surgical treatment. The risks, benefits, and alternatives were discussed in clinic. The risks of , blood clots, bleeding, infection, nerve/tendon blood vessel/ injury, malposition of components, intraoperative fracture, postoperative limited range of motion, persistent pain, failure of components, and need for additional procedures. Patient wished to proceed consent was obtained after answering all questions. Procedure: After marking the correct extremity on the floor, the patient was taken to the operating room. A timeout was performed. IV antibiotics consisting of Ancef were administered prior to the procedure. A regional followed by spinal anesthetic was induced by anesthesia, per my request, on the operative table with all bony prominences well-padded. Bender catheter was placed, and a bump was placed under the operative side buttock. SCDs and OZZY hose were utilized on the nonoperative leg. A well-padded tourniquet was applied to the operative thigh. The operative leg was then pre-scrubbed with alcohol, prepped, and draped in a standard sterile fashion. After exsanguinating the extremity with an Esmarch bandage, the tourniquet was inflated. After marking out the anterior knee for standard incision centered over the patella, the skin was incised and dissected down to the joint retinaculum. The joint retinaculum was marked out as well as the horizontal axis of the patella, and a standard medial parapatellar arthrotomy was then made. The most proximal aspect of the quadriceps tendon and the patella tendon insertion were protected from release. A partial synovectomy was performed as well as a resection of the infrapatellar fat pad. The distal femoral fat pad proximal to the trochlea was also resected using cautery. The soft tissues were elevated off the medial asp ect of the proximal tibia using a Alejo elevator ensuring that we did not transect the medial collateral ligament. Upon initial evaluation range of motion was approximately 0 degrees to 125 degrees of flexion. There were signs of advanced arthrosis in the medial and patellofemoral greater than lateral joint spaces. There were large marginal osteophytes which were removed with a rongeur. The knee was hyperflexed and the patella was tucked laterally. Protecting the surrounding soft tissues with Homans, an entry drill was placed down the femoral canal using Whitesides line for guidance into the entry point. The intramedullary femoral alignment luis was utilized in order to cut the distal femur in 5 degrees of valgus resecting 10 millimeters of bone. Next the distal femur was sized to a size 7. A posterior referencing guide was utilized to place the distal femoral cutting block in 3 degrees of external rotation. This was pinned into place. The rotation was confirmed both visually and based on anatomic landmarks. The 4 in 1 cutting jig of the appropriate size was utilized in order to make all bony cuts. The colten wing was used to ensure no notching. Retractors were utilized in order to protect surrounding soft tissues. This cut did not result in any excessive notching. We then cut the box centered over the distal femur. This allowed for resection of the anterior and posterior cruciate ligaments. I then turned my attention to the preparation of the tibia. Using an extra medullary tibial alignment luis, 3 millimeters of bone was resected off the medial articular surface. This was made perpendicular to the mechanical axis of the joint with the alignment luis centered over the ankle mortise. The alignment luis was checked and was noted to be parallel to the [facility] anical axis, centered over the medial one third of the tibial tubercle, paralleling the anterior surface of the tibia. We then turned our attention to the remaining meniscus and soft tissues. These were removed while protecting the surrounding ligaments and soft tissues. The marginal osteophytes off the anterior, posterior, medial, lateral aspects of the femur and tibia were removed. The tibia was sized out to a size 7. Next the tibia was drilled and punched in an externally rotated position. Next the trial femur and a series of tibial inserts were utilized in order to allow for full extension and maximal flexion. It was found that a 5 millimeter insert gave the best range of motion and stability at multiple flexion points as well as at full extension there was less than 2 mm of gapping both medially and laterally. There is minimal anterior translation with the knee at 90 degrees of flexion and no signs of being able to dislocate the knee. The patella was then prepared. The initial thickness was 25 millimeters. This was reamed down to 15 millimeters parallel to the anterior surface of the patella. It was sized out to a size 41 medialized patella button. This was then drilled and trialed. Without any medial restraint the patella tracked appropriately and did not sublux or dislocate. At this point, it was felt these were the appropriate sized implants, and all trials were removed. The standard periarticular joint injection consisting of ropivacaine, Toradol, and epinephrine were injected into the periarticular joint tissues. The bony surfaces were thoroughly irrigated with a pulsatile-suction saline irrigation device. A bone plug from the prior resected anterior chamfer cut was placed into the drill hole at the distal femur. The bony surfaces were then dried in preparation for placement of the implants. The cement was vacuum mixed per the book solicitor's instructions. The cement was placed on the dry bony surfaces and posterior aspect of the implants. The implants were impacted into place, removing all extruded cement. At this point anesthesia administered tranexamic acid per protocol intravenously. The knee was placed in extension with axial loading with the trial insert while the cement cured. Once the cement cured, all remaining extruded cement was removed. The knee was placed through a range of motion with the trial insert to ensure appropriate range of motion and stability. Final range of motion was approximately 0 to 125 degrees. The knee was again thoroughly irrigated with pulsatile saline lavage. The final polyethylene insert was then impacted into place ensuring no retained soft tissues. The remaining periarticular joint injection was injected. A medium Hemovac drain was placed exiting superior laterally. The knee was then placed over a triangle and the arthrotomy was closed with interrupted #1 Vicryl after thoroughly irrigating the joint. The deep and subcutaneous tissues were closed with interrupted 0 and 3-0 Vicryl respectively. Skin was closed with a running subcutaneous 3-0 Monocryl and Prineo Dermabond dressing. 4 x 4's, Sof-Rol, and a full leg Jung wrap were applied. All sponge, needle, blade, and instrument counts were correct prior to closing the wounds. Postoperative condition: The patient was awoken and transferred to the postanesthesia care unit in stable condition. Plan is to be admitted to the inpatient medical/surgical floor postoperatively for 24 hours of IV antibiotics, physical therapy, occupational therapy, and medical comanagement. Patient will be weightbearing as tolerated with range of motion as tolerated. DVT prophylaxis will be with SCDs, OZZY hose, and pharmacological anticoagulation. Anticipated hospital stay is approximately 1-3 days.
[2020-06-30] MEDS ORDERED: FLUTICASONE PROPIONATE 120 SPRAY INHALER NS PRN (11:58)
[2020-06-30] MEDS ORDERED: OXYMETAZOLINE HCL 150 SPRAY BTL NS PRN (11:58)
[2020-06-30] MEDS ORDERED: MAGNESIUM CARB PO PRN (11:58)
[2020-06-30] MEDS ORDERED: ALUMINUM HYDROX PO PRN (11:58)
--- NOTE | 2020-06-30 12:38 | ANES ---
Post Anesthesia Discharge - Transfer of Care Transfer of Care handoff given to nurse: Yes - Discharge from PACU Discharge from PACU when meets criteria: Yes - Discharge to ASU Discharge to ASU-no complications/pt stable: Yes
--- NOTE | 2020-06-30 12:40 | ANES ---
Anesthesia Procedure Note Procedure Note: ANESTHESIA PROCEDURE NOTE Date of Procedure: 06/30/2020. Time of procedure: 944. Performed by: Valentín Martinez CRNA Lusterer: None. Preprocedure diagnosis: Right knee degenerative joint disease. Post procedure diagnosis: Same. Procedure: Right ultrasound guided adductor canal block for postoperative analgesia. Indications: The patient is a 64-year-old male, requesting right ultrasound- guided abductor canal nerve block for postoperative analgesia related to right total knee arthroplasty. Findings: See below. Details of the procedure: The tissue over the intended target site was cleansed with ChloraPrepand draped in a sterile fashion. 2 ml Lidocaine 1 % was infiltrated to the skin and subcutaneous tissue at the intended target site. Under sterile technique and ultrasound guidance a 20-gauge block needle was inserted through the right sartorius muscle to the saphenous nerve just anterior and medial to the superficial femoral artery and vein. 15 mL's of 0.5% bupivacaine plus epinephrine 1:200,000 was injected after negative aspiration for blood. Needle tip and spread of local anesthetic surrounding the saphenous nerve was observed throughout the injection with real time ultrasound visualization. The needle was then removed intact. No complications were noted. The images were retained in the Hospital medical database. EBL: Minimal. Fluids: N/A. Specimen: N/A. Post procedure condition: The patient tolerated the procedure well. No complications were noted. Thank you for this consultation. Valentín Martinez CRNA
[2020-06-30] MEDS: ceFAZolin SODIUM 1 GM in DEXTROSE 5 % IN WATER 100 ML IV SCH ×4 (13:01→21:07)
[2020-06-30] MEDS: KETOROLAC TROMETHAMINE 15 MG/ML VIAL IV SCH ×2 (13:02→19:22)
--- NOTE | 2020-06-30 13:39 | ANES ---
Post Anesthesia Assessment - Vital Signs Vitals: Last Vital Signs Temp 36.6 C 06/30/20 12:40 Pulse 50 L 06/30/20 12:40 Resp 13 06/30/20 12:40 BP 122/60 06/30/20 12:40 Pulse Ox 95 06/30/20 12:40 Airway Patency: Normal - Mental Status Level Of Consciousness: Awake - Pain Level Pain Score: 0 - N/V Assessment Nausea/Vomiting Presence: None Dehydration:: No
[2020-06-30] MEDS: MORPHINE SULFATE 10 MG/0.5 ML SYRINGE PO PRN ×3 (14:54→19:23)
[2020-06-30] MEDS ORDERED: TAMSULOSIN HCL 0.4 MG CAP.SR.24H PO SCH (21:00)
[2020-06-30] MEDS: SENNOSIDES/DOCUSATE SODIUM 1 TAB TABLET PO SCH (21:08)
[2020-06-30] MEDS: MORPHINE SULFATE 15 MG TABLET.SA PO SCH (21:09)
[2020-07-01] MEDS: KETOROLAC TROMETHAMINE 15 MG/ML VIAL IV SCH ×3 (01:29→12:42)
[2020-07-01] MEDS: ceFAZolin SODIUM 1 GM in DEXTROSE 5 % IN WATER 100 ML IV SCH ×2 (01:32)
[2020-07-01 06:49] LABS: Hematocrit 40.4 % (42.0-52.0); Mean Cell Volume 93.5 fl (78-100); Mean Corpuscular Hemoglobin 30.1 pg (27-31); Mean Corpuscular Hgb Conc 32.2 g/dl (32-36); Mean Platelet Volume 11.9 fl (8-11.3); Platelet Count 160 K/mm3 (150-450); Red Blood Count 4.32 M/mm3 (4.7-6.0); Red Cell Distribution Width 12.8 % (11.5-14.0); White Blood Count 7.7 K/mm3 (4.0-10.5)
[2020-07-01] MEDS ORDERED: PANTOPRAZOLE SODIUM 20 MG TABLET.DR PO SCH (07:00)
[2020-07-01] MEDS ORDERED: LEVOTHYROXINE SODIUM 50 MCG TABLET PO SCH (07:00)
[2020-07-01 07:03] LABS: Anion Gap 9.4 mmol/L (6.8-13.8); BUN/Creatinine Ratio 11.3 (9.0-21.6); Calcium * 8.7 mg/dL (7.9-10.9); Carbon Dioxide 27.8 mmol/L (24-32.6); Estimated Creat Clear 51.7; Potassium 4.2 mmol/L (3.4-4.6)
[2020-07-01] MEDS: MORPHINE SULFATE 10 MG/0.5 ML SYRINGE PO PRN ×3 (07:32→15:40)
[2020-07-01] MEDS ORDERED: MULTIVIT-MIN/FA/LYCOPEN/LUTEIN 1 TAB TABLET PO SCH (09:00)
[2020-07-01] MEDS ORDERED: PSEUDOEPHEDRINE PO SCH (09:00)
[2020-07-01] MEDS ORDERED: FEXOFENADINE PO SCH (09:00)
[2020-07-01] MEDS ORDERED: DILTIAZEM HCL 300 MG PO SCH (09:00)
[2020-07-01] MEDS ORDERED: FINASTERIDE 5 MG TABLET PO SCH (09:00)
[2020-07-01] MEDS ORDERED: DILTIAZEM HCL PO SCH ×2 (09:00)
[2020-07-01] MEDS ORDERED: LISINOPRIL 20 MG TABLET PO SCH (09:00)
[2020-07-01] MEDS ORDERED: PROPRANOLOL HCL 80 MG CAPSULE.SA PO SCH (09:00)
[2020-07-01] MEDS ORDERED: CHOLECALCIFEROL 1,000 UNIT CAPSULE PO SCH (09:00)
[2020-07-01] MEDS ORDERED: [UNRECOGNIZED DRUG - OTHER] PO SCH (09:00)
[2020-07-01] MEDS: MORPHINE SULFATE 15 MG TABLET.SA PO SCH (09:26)
[2020-07-01] MEDS: SENNOSIDES/DOCUSATE SODIUM 1 TAB TABLET PO SCH (09:27)
[2020-07-01] MEDS ORDERED: ENOXAPARIN SODIUM 40 MG/0.4 ML SYRG SC SCH (10:56)
--- NOTE | 2020-07-01 15:07 | DS ---
(1) Status post right knee replacement Problem: Acute (2) Hyperlipidemia Problem: Chronic (3) Hypertension Problem: Chronic Date of Discharge:: 07/01/20 Hospital Course: Mr. Unger was admitted to the floor after undergoing right total knee arthroplasty. Tolerated this well. Was admitted to the floor postoperatively for 24 hours of IV antibiotics, pain control, medical comanagement, and occupational and physical therapy. OT and PT were consulted to assist with activities of daily living and ambulation. Was made weightbearing as tolerated with range of motion as tolerated. Pain was initially controlled with IV regimen. This was transitioned to oral once tolerating a by mouth intake. Was resumed on home diet and medications. A Bender catheter was inserted in the operating room which was discontinued by postoperative day 1. A drain was placed intraoperatively into the knee which was discontinued on postoperative day 1. Lovenox, SCDs, and OZYZ hose were utilized for DVT prophylaxis. Vital signs remained stable to the hospital course. Labs were obtained which showed a final hemoglobin of 13.0 grams. BMP was reviewed and was stable. Physical examination throughout the hospital course showed an extremity that had sensation that was intact to light touch, palpable pulses, a benign wound, motor intact to the toes, ankle, and knee. Knee range of motion was approximately 5 degrees to 60 degrees. Once an oral pain regimen was tolerated and physical therapy goals were met, it was felt that they were stable for discharge to home. Instructions: Continue with weightbearing as tolerated and range of motion as tolerated. It is okay to shower and get the wound wet as long as there is no drainage from the wound. Do not bathe or soak the wound. If there is any drainage from the wound keep the wound clean and dry and cover with dry gauze and tape. Change every 2- 3 days as needed if there is any drainage. Cover wound while showering if there is any drainage. Continue with physical therapy. Resume home diet. Report any fever over 101.5 Fahrenheit, uncontrolled pain, increased drainage, foul odor of drainage, new or increased calf pain or shortness of breath, or any other sig nificant complaints. A 325mg daily aspirin will be started after finishing anticoagulation if not allergic. Continue with OZZY hose on the operative extremity until instructed otherwise. No driving until instructed otherwise. Follow up in approximately 2-3 weeks. Procedures Performed: see notes below List Procedures: Right total knee arthroplasty Results and Findings: Lab Pending Results 07/01/20 06:30: WBC 7.7, RBC 4.32 L, Hgb 13.0 L, Hct 40.4 L, MCV 93.5, MCH 30.1, MCHC 32.2, RDW 12.8, Plt Count 160, MPV 11.9 H 07/01/20 06:30: Sodium 137, Plasma Sodium 137, Potassium 4.2, Chloride 104, Carbon Dioxide 27.8, Anion Gap 9.4, BUN 19, Creatinine 1.68 H, Est GFR (Non-Af Amer) 44 L, BUN/Creatinine Ratio 11.3, Random Glucose 125 H, Calcium 8.7 Disposition: Home self-care Condition: Good Discharge Activity: Activity as tolerated, Weight bearing Discharge Diet: General/regular food Referrals: Dominique Collins MD [Primary Care Provider] - Additional Patient Instructions (free text): Physical Therapy at [facility] outpatient rehab on TuesdayJuly 02 at 9:30am. Follow up [facility] Orthopedic office appointment on TuesdayJuly 22 at 9:45am. Prescriptions (Any new or edited meds): Enoxaparin Sodium [Lovenox] 40 mg SC Q24H #7 disp.syrin Transmission Status: Received by [facility] Morphine Sulfate 1 - 2 tab PO Q4H PRN #50 tab PRN Reason: Pain Transmission Status: Received by [facility] Morphine Sulfate [Ms Contin] 15 mg PO Q12H #10 tablet.sa Transmission Status: Received by [facility] Sennosides/Docusate Sodium [Senokot-S] 2 tab PO BID #90 tab Transmission Status: Received by [facility] Complete Home Medications List: Complete Home Medication List: Multivit-Min/FA/Lycopen/Lutein [Centrum Silver Ultra Men's Tab] 1 ea PO DAILY 04/27/12 cholecalciferol (vitamin D3) 25 mcg (1,000 unit) capsule 1,000 unit PO DAILY cap 02/13/18 sennosides 15 mg tablet 45 mg PO HS tab 02/13/18 Fexofenadine/Pseudoephedrine [Korina-D 24 Hour Tablet] 1 ea PO DAILY 01/24/19 Oxymetazoline HCl [Afrin Nasal [place]] 1 spray NS DAILY PRN 01/29/19 diltiazem HCl 300 mg capsule,24 hr,extended release 300 mg PO DAILY #30 cap 04/08/20 levothyroxine 50 mcg tablet 50 mcg PO DAILY #30 tab 04/08/20 lisinopril 20 mg tablet 20 mg PO DAILY #30 tab 04/08/20 omeprazole 20 mg tablet,delayed release 20 mg PO DAILY #30 tab 04/08/20 finasteride 5 mg tablet 5 mg PO DAILY #30 tab 06/09/20 tamsulosin 0.4 mg capsule 0.4 mg PO HS #30 cap 06/09/20 propranolol 120 mg capsule,24 hr,extended release 480 mg PO DAILY #120 cap 06/12/20 Magnesium Carb/Aluminum Hydrox [Gaviscon Es Tablet Chew] 1 ea PO DAILY PRN 06/25/20 Magnesium Citrate 296 ml PO DAILY PRN 06/25/20 Naproxen Sodium 220 mg PO BID PRN 06/25/20 Fluticasone Propionate [Flonase Allergy Relief] 2 spray FRANDY DAILY PRN MDD hs 06/30/20 Acetaminophen [Tylenol] 1,000 mg PO Q6H PRN tab 07/01/20 Enoxaparin Sodium [Lovenox] 40 mg SC Q24H #7 disp.syrin 07/01/20 Morphine Sulfate 1 - 2 tab PO Q4H PRN #50 tab 07/01/20 Morphine Sulfate [Ms Contin] 15 mg PO Q12H #10 tablet.sa 07/01/20 Sennosides/Docusate Sodium [Senokot-S] 2 tab PO BID #90 tab 07/01/20 Amb Orders for Discharge: PT Evaluation and Treatment* Facility: [facility], Location: Rehabilitation Services Forms: Patient Portal Registration
[2020-07-01 17:01] VITALS: BP 156/85
== END 2020-07-01 17:07 | disposition home or self-care (01) | DRG 470 ==
LOC: MS 08:44 → EDSTATUS 13:00
PROVIDERS: ADMIT Orthopaedic Surgery; ATTEND Orthopaedic Surgery